=== PATIENT | female | born 1965 | race Native Hawaiian/Other Pacific Islander ===

== ENCOUNTER 2017-12-23 10:38 | Inpatient (IN) | payer OTHER ==
[2017-12-23 10:39] VITALS: BMI 22.8
--- NOTE | 2017-12-23 11:03 | C.PDOC ---
History Of Present Illness 52 y/o female s/p colonoscopy this morning sent by DR. Garza for admission. Patient complains of persistent GI bleed since 07/2017 bright red blood associated with weight loss and occasional lightheadedness. Patient admits to decreased appetite and denies pain, nausea, vomiting or back pain. Time Seen by Provider: 12/23/17 10:59 Chief Complaint (Nursing): GI Problem History Per: Patient History/Exam Limitations: no limitations Onset/Duration Of Symptoms: Days Current Symptoms Are (Timing): Still Present Past Medical History Reviewed: Historical Data, Nursing Documentation, Vital Signs Vital Signs: Last Vital Signs Temp 98.4 F 12/23/17 11:46 Pulse 86 12/23/17 11:46 Resp 20 12/23/17 11:46 BP 135/71 12/23/17 11:46 Pulse Ox 99 12/23/17 11:46 - Medical History PMH: Depression (NO MEDICATIONS), Migraine Surgical History: No Surg Hx Family History: States: No Known Family Hx Review Of Systems Constitutional: Negative for: Fever, Chills Gastrointestinal: Positive for: Hematochezia. Negative for: Nausea, Vomiting, Abdominal Pain Musculoskeletal: Negative for: Back Pain Skin: Negative for: Rash Physical Exam - Physical Exam Appears: Non-toxic, No Acute Distress Skin: Warm, Dry, No Pale, No Rash Head: Atraumatic, Normacephalic Eye(s): bilateral: PERRL, EOMI Oral Mucosa: Moist Neck: Normal ROM, Supple Cardiovascular: Rhythm Regular Respiratory: Normal Breath Sounds, No Rales, No Rhonchi, No Wheezing Gastrointestinal/Abdominal: Soft, No Tenderness, No Guarding, No Rebound Rectal: Deferred Back: No CVA Tenderness Extremity: Normal ROM, Capillary Refill (<2 seconds) Neurological/Psych: Oriented x3, Normal Speech, Normal Cognition ED Course And Treatment - Laboratory Results Result Diagrams: 12/23/17 11:41 12/23/17 11:41 ECG: Interpreted By Me, Viewed By Me ECG Rhythm: Sinus Rhythm Rate From EC (BPM) O2 Sat by Pulse Oximetry: 100 (RA) Pulse Ox Interpretation: Normal Progress - Re-Evaluation Re-evaluation Note: 12/23/17 11:00 D/W DR GARZA: STATES D/W DR JONES PRIOR TO ER REFERRAL, PT REQUIRES ADMISSION FOR RECTAL BLEEDING AND MASS. - Data Reviewed Data Reviewed: Lab, Diagnostic imaging, EKG, Old records - Critical Care Citical Care: Excluding Proc Time Critical Care Time: 90 minutes - Continuity of Care Discussed patient case with:: Patient Discussed pt. case with toy consultant/specialty: Gastroenterology Disposition Counseled Patient/Family Regarding: Studies Performed, Diagnosis - Disposition Disposition: HOSPITALIZED Disposition Time: 11:02 Condition: STABLE - POA Present On Arrival: None - Clinical Impression Clinical Impression: GI bleed, Rectal mass - Scribe Statement The provider has reviewed the documentation as recorded by the Merrickibadriel Wagner All medical record entries made by the Merrickibadriel were at my direction and personally dictated by me. I have reviewed the chart and agree that the record accurately reflects my personal performance of the history, physical exam, medical decision making, and the department course for this patient. I have also personally directed, reviewed, and agree with the discharge instructions and disposition. Decision To Admit - Pt Status Changed To: Hospital Disposition Of: Inpatient - Admit Certification Admit to Inpatient:: After my assessment, the patient will require hospitalization for at least two midnights. This is because of the severity of symptoms shown, intensity of services needed, and/or the medical risk in this patient being treated as an outpatient. - InPatient: Physician Admission Certification: I certify that this patient requires 2 or more midnights of care for the following reason:: SEE NOTE - . Bed Request Type: Telemetry Admitting Physician: Werner Jones Patient Diagnosis: GI bleed, Rectal mass
[2017-12-23 11:46] LABS: BASO # 0.1 K/uL (0.0-0.2); BASO % 0.9 % (0.0-2.0); EOS # 0.1 K/uL (0.0-0.7); HEMOGLOBIN 12.5 g/dL (11.0-16.0); LYMPH # 1.7 K/uL (1.0-4.3); LYMPH % 18.7 % (20.0-40.0); MEAN CORPUSCULAR HGB CONC 33.3 g/dL (33.0-37.0); MEAN PLATELET VOLUME 8.1 fL (7.2-11.7); MONO # 0.8 K/uL (0.0-0.8); MONO % 8.9 % (0.0-10.0); NEUT # 6.4 K/uL (1.8-7.0); NEUT % 70.5 % (50.0-75.0); RBC 4.16 Mil/uL (3.80-5.20)
--- NOTE | 2017-12-23 11:52 | RAD ---
Chest x-ray single frontal view History: GI bleeding. Comparison: None available. Findings: Bibasilar breast and nipple shadows. Mild venous congestion. Tortuous aorta. Degenerative changes in the spine. Impression: Bibasilar breast and nipple shadows. Mild venous congestion. Tortuous aorta.
[2017-12-23 11:54] LABS: PROTHROMBIN TIME 11.2 SECONDS (9.7-12.2)
[2017-12-23 12:00] LABS: ALB/GLOB RATIO 1.1 (1.0-2.1); ALBUMIN 3.9 g/dL (3.5-5.0); ALT/SGPT 100 U/L (9-52); AST/SGOT 146 U/L (14-36); BLOOD UREA NITROGEN 7 mg/dL (7-17); CALCIUM 8.5 mg/dl (8.6-10.4); GFR AFRICAN-AMERICAN > 60; GFR NON-AFRICAN AMERICAN > 60
--- NOTE | 2017-12-23 13:26 | CP.PCM.CON ---
History of Present Illness - History of Present Illness History of Present Illness: 52 year old female with a history of hemorrhoids, admitted with hematochezia, found to have a rectal mass concerning for malignancy. The patient notes to bleeding with bowel movements for 4-5 months. She notes to a few drops of blood in the toilet bowl or blood streaked toilet paper. She notes to progressive fatigue and 5-10 pound weightloss. She is s/p colonoscopy which revealed a rectal mass s/p biopsy. Past medical history: Hemorrhoids Past surgical history: Denies Family history: Sister had colon cancer at age 52 Social history: Denies tobacco, alcohol, and illicit drug use. Allergies: NKA Review of systems: All remaining review of systems including HEENT, cardiovascular, respiratory, gastrointestinal, genitourinary, musculoskeletal, dermatologic, neurologic, and psychiatric are negative unless mentioned in the HPI. Past Patient History - Past Medical History & Family History Past Medical History?: Yes - Past Social History Smoking Status: Never Smoked - CARDIAC Hx Cardiac Disorders: No - PULMONARY Hx Respiratory Disorders: No - NEUROLOGICAL Hx Migraine: Yes - HEENT Hx HEENT Problems: No Other/Comment: LASIC SURGERY BOTH EYES - RENAL Hx Chronic Kidney Disease: No - ENDOCRINE/METABOLIC Hx Endocrine Disorders: No - HEMATOLOGICAL/ONCOLOGICAL Hx Blood Disorders: No Hx Blood Transfusions: No - INTEGUMENTARY Hx Dermatological Problems: No - MUSCULOSKELETAL/RHEUMATOLOGICAL Hx Fractures: No - GASTROINTESTINAL Hx Gastrointestinal Disorders: Yes Hx Hemorrhoids: Yes - GENITOURINARY/GYNECOLOGICAL Hx Genitourinary Disorders: No - PSYCHIATRIC Hx Depression: Yes (NO MEDICATIONS) - SURGICAL HISTORY Hx Surgeries: Yes Hx Tubal Ligation: Yes Other/Comment: LASIK EYE, BILATERAL BREAST IMPLANTS - ANESTHESIA Hx Anesthesia: Yes Hx Anesthesia Reactions: No Hx Malignant Hyperthermia: No Meds Allergies/Adverse Reactions: Allergies Allergy/AdvReac Type Severity Reaction Status Date / Time No Known Allergies Allergy Verified 12/23/17 10:45 - Medications Medications: Current Medications Pantoprazole Sodium (Protonix Inj) 40 mg IVP DAILY [facility] Physical Exam - Head Exam Head Exam: ATRAUMATIC - Eye Exam Eye Exam: Normal appearance - ENT Exam ENT Exam: Mucous Membranes Dry - Respiratory Exam Respiratory Exam: NORMAL BREATHING PATTERN - Cardiovascular Exam Cardiovascular Exam: +S1, +S2 - GI/Abdominal Exam GI & Abdominal Exam: Normal Bowel Sounds - Extremities Exam Extremities exam: Positive for: normal inspection - Neurological Exam Neurological exam: Oriented x3 - Psychiatric Exam Psychiatric exam: Normal Affect, Normal Mood - Skin Skin Exam: Warm Results - Vital Signs Recent Vital Signs: Last Vital Signs Temp 97.1 F L 12/23/17 12:56 Pulse 77 12/23/17 13:02 Resp 20 12/23/17 12:56 BP 114/71 12/23/17 12:56 Pulse Ox 99 12/23/17 12:56 - Labs Result Diagrams: 12/24/17 07:03 12/24/17 07:03 Labs: Laboratory Results - last 24 hr 12/23/17 12/23/17 12/23/17 11:41 11:41 11:41 WBC 9.0 RBC 4.16 Hgb 12.5 Hct 37.5 MCV 90.0 MCH 30.0 MCHC 33.3 RDW 15.0 H Plt Count 350 MPV 8.1 Neut % (Auto) 70.5 Lymph % (Auto) 18.7 L [place] % (Auto) 8.9 Eos % (Auto) 1.0 Baso % (Auto) 0.9 Neut # (Auto) 6.4 Lymph # (Auto) 1.7 [place] # (Auto) 0.8 Eos # (Auto) 0.1 Baso # (Auto) 0.1 PT 11.2 INR 1.0 APTT 37 H Sodium 141 Potassium 4.5 Chloride 104 Carbon Dioxide 27 Anion Gap 14 BUN 7 Creatinine 0.6 L Est GFR ( Amer) > 60 Est GFR (Non-Af Amer) > 60 Random Glucose 87 Calcium 8.5 L Total Bilirubin 0.4 AST 146 H ALT 100 H Alkaline Phosphatase 131 H Total Protein 7.4 Albumin 3.9 Globulin 3.5 Albumin/Globulin Ratio 1.1 Blood Type Antibody Screen 12/23/17 11:41 WBC RBC Hgb Hct MCV MCH MCHC RDW Plt Count MPV Neut % (Auto) Lymph % (Auto) [place] % (Auto) Eos % (Auto) Baso % (Auto) Neut # (Auto) Lymph # (Auto) [place] # (Auto) Eos # (Auto) Baso # (Auto) PT INR APTT Sodium Potassium Chloride Carbon Dioxide Anion Gap BUN Creatinine Est GFR ( Amer) Est GFR (Non-Af Amer) Random Glucose Calcium Total Bilirubin AST ALT Alkaline Phosphatase Total Protein Albumin Globulin Albumin/Globulin Ratio Blood Type AB POSITIVE Antibody Screen Negative Assessment & Plan (1) Rectal mass Assessment and Plan: concerning for malignancy f/u biopsy check CT C/A/P and CEA further treatment recs based on path and staging Thank you for this interesting consult. Status: Acute
--- NOTE | 2017-12-23 14:58 | CP.PCM.CON ---
History of Present Illness - History of Present Illness History of Present Illness: Surgery- Dr. Sung Reason for consult: Rectal mass 52F presents w/ rectal bleeding since July with bright red blood on the toilet paper and blood in stool stating not more than a few drops of blood. Patient has been complaining of associated dizziness and lightheadedness. Patient states 8lb weight loss over the last 6 months. 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 Colonoscopy was performed today and a fungating mass was found at the rectosigmoid junction that was actively oozing Denies associated fevers, chills, chest pain, nausea, vomiting, changes in vision, loss of consciousness PMH: External & internal Hemorrhoids, , migraines PSH: C-Scope (07/2016 & 12/2017), Laparoscopic Tubal ligation ALL: NKDA SocialHx: occasional ETOH use, Denies tobacco, recreational drug use FamilyHx: Sister colon CA at age 52 Review of Systems - Review of Systems All systems: reviewed and no additional remarkable complaints except - Constitutional Constitutional: As Per HPI Past Patient History - Past Medical History & Family History Past Medical History?: Yes - Past Social History Smoking Status: Never Smoked - CARDIAC Hx Cardiac Disorders: No - PULMONARY Hx Respiratory Disorders: No - NEUROLOGICAL Hx Migraine: Yes - HEENT Hx HEENT Problems: No Other/Comment: LASIC SURGERY BOTH EYES - RENAL Hx Chronic Kidney Disease: No - ENDOCRINE/METABOLIC Hx Endocrine Disorders: No - HEMATOLOGICAL/ONCOLOGICAL Hx Blood Disorders: No Hx Blood Transfusions: No - INTEGUMENTARY Hx Dermatological Problems: No - MUSCULOSKELETAL/RHEUMATOLOGICAL Hx Fractures: No - GASTROINTESTINAL Hx Gastrointestinal Disorders: Yes Hx Hemorrhoids: Yes - GENITOURINARY/GYNECOLOGICAL Hx Genitourinary Disorders: No - PSYCHIATRIC Hx Depression: Yes (NO MEDICATIONS) - SURGICAL HISTORY Hx Surgeries: Yes Hx Tubal Ligation: Yes Other/Comment: LASIK EYE, BILATERAL BREAST IMPLANTS - ANESTHESIA Hx Anesthesia: Yes Hx Anesthesia Reactions: No Hx Malignant Hyperthermia: No Meds Allergies/Adverse Reactions: Allergies Allergy/AdvReac Type Severity Reaction Status Date / Time No Known Allergies Allergy Verified 12/23/17 10:45 - Medications Medications: Current Medications Pantoprazole Sodium (Protonix Inj) 40 mg IVP DAILY [facility] Physical Exam - Constitutional Appears: Non-toxic, No Acute Distress - Head Exam Head Exam: ATRAUMATIC - Eye Exam Eye Exam: EOMI. absent: Scleral icterus - ENT Exam ENT Exam: Mucous Membranes Moist - Respiratory Exam Respiratory Exam: NORMAL BREATHING PATTERN. absent: Accessory Muscle Use, Respiratory Distress - Cardiovascular Exam Cardiovascular Exam: +S1, +S2. absent: Bradycardia, Tachycardia - GI/Abdominal Exam GI & Abdominal Exam: Soft. absent: Distended, Firm, Guarding, Rigid, Tenderness - Rectal Exam Rectal Exam: Hemorrhoids. absent: Fecal Impaction Additional comments: Skin tags at the 12 and 9 o'clock position no bright red blood noted on exam - Extremities Exam Extremities exam: Negative for: calf tenderness, pedal edema - Neurological Exam Neurological exam: Alert, Oriented x3 - Psychiatric Exam Psychiatric exam: Normal Affect - Skin Skin Exam: Normal Color Results - Vital Signs Recent Vital Signs: Last Vital Signs Temp 97.1 F L 12/23/17 12:56 Pulse 77 12/23/17 13:02 Resp 20 12/23/17 12:56 BP 114/71 12/23/17 12:56 Pulse Ox 99 12/23/17 12:56 - Labs Result Diagrams: 12/23/17 11:41 12/23/17 11:41 Labs: Laboratory Results - last 24 hr 12/23/17 12/23/17 12/23/17 11:41 11:41 11:41 WBC 9.0 RBC 4.16 Hgb 12.5 Hct 37.5 MCV 90.0 MCH 30.0 MCHC 33.3 RDW 15.0 H Plt Count 350 MPV 8.1 Neut % (Auto) 70.5 Lymph % (Auto) 18.7 L [place] % (Auto) 8.9 Eos % (Auto) 1.0 Baso % (Auto) 0.9 Neut # (Auto) 6.4 Lymph # (Auto) 1.7 [place] # (Auto) 0.8 Eos # (Auto) 0.1 Baso # (Auto) 0.1 PT 11.2 INR 1.0 APTT 37 H Sodium 141 Potassium 4.5 Chloride 104 Carbon Dioxide 27 Anion Gap 14 BUN 7 Creatinine 0.6 L Est GFR ( Amer) > 60 Est GFR (Non-Af Amer) > 60 Random Glucose 87 Calcium 8.5 L Total Bilirubin 0.4 AST 146 H ALT 100 H Alkaline Phosphatase 131 H Total Protein 7.4 Albumin 3.9 Globulin 3.5 Albumin/Globulin Ratio 1.1 Blood Type Antibody Screen 12/23/17 11:41 WBC RBC Hgb Hct MCV MCH MCHC RDW Plt Count MPV Neut % (Auto) Lymph % (Auto) [place] % (Auto) Eos % (Auto) Baso % (Auto) Neut # (Auto) Lymph # (Auto) [place] # (Auto) Eos # (Auto) Baso # (Auto) PT INR APTT Sodium Potassium Chloride Carbon Dioxide Anion Gap BUN Creatinine Est GFR ( Amer) Est GFR (Non-Af Amer) Random Glucose Calcium Total Bilirubin AST ALT Alkaline Phosphatase Total Protein Albumin Globulin Albumin/Globulin Ratio Blood Type AB POSITIVE Antibody Screen Negative Assessment & Plan - Assessment and Plan (Free Text) Assessment: 52F w/ rectal bleeding & rectosigmoid mass Plan: - Pre-operative CEA - Chest and Abdomen CT to r/o Mets - CLD - tentatively plan for OR on - f/u biopsy results - daily labs - further recs per Dr. Sung surgical attending PGY1
[2017-12-23] MEDS ORDERED: Iodixanol 320 MG/ML 100 ML BOTTLE IV ONE (16:46)
--- NOTE | 2017-12-23 17:48 | CT ---
PROCEDURE: CT Chest, Abdomen and Pelvis with intravenous contrast HISTORY: rectal mass, r/o mets COMPARISON: None. TECHNIQUE: IV dose administered: 100 mL Visipaque 320 Radiation dose: Total exam DLP = 544.67 mGy-cm. This CT exam was performed using one or more of the following dose reduction techniques: Automated exposure control, adjustment of the mA and/or kV according to patient size, and/or use of iterative reconstruction technique. FINDINGS: CT CHEST WITH CONTRAST: LUNGS: Clear. No nodule, mass or consolidation. MEDIASTINUM: Unremarkable. Normal caliber aorta and pulmonary arterial trunk. No aortic dissection. Normal size heart. Bilateral breast augmentation prostheses noted. LYMPH NODES: No mediastinal or hilar lymphadenopathy.Incidental subcentimeter right epicardial lymph node common nonspecific. PLEURA: Unremarkable. No pneumothorax. No pleural fluid. BONES: Unremarkable. OTHER FINDINGS: None. CT ABDOMEN AND PELVIS: LIVER: Innumerable metastases throughout both lobes of the liver. The very markedly in size. No biliary dilatation. Normal hepatic size and contour. GALLBLADDER AND BILE DUCTS: Unremarkable. PANCREAS: Unremarkable. No gross lesion or ductal dilatation. SPLEEN: Unremarkable. ADRENALS: Unremarkable. No mass. KIDNEYS AND URETERS: Unremarkable. No hydronephrosis. No solid mass. VASCULATURE: Unremarkable. No aortic aneurysm. BOWEL: Mural thickening of the rectum, long segment. There is also a left pararectal soft tissue mass with only narrow point of connection to the rectum. This may represent lymphadenopathy. There are multiple small perirectal nodes elsewhere. There are no other abnormal bowel loops. There is no bowel obstruction. APPENDIX: Normal appendix. PERITONEUM: Unremarkable. No free fluid. No free air. LYMPH NODES: No retroperitoneal or pelvic lymphadenopathy. BLADDER: Poorly distended. Grossly normal. REPRODUCTIVE: Normal uterus. BONES: No acute fracture. OTHER FINDINGS: None. IMPRESSION: Long segment rectal thickening consistent with stated diagnosis of rectal neoplasm. Left pararectal mass, possibly lymphadenopathy, with narrow point of connection to the rectum. Small perirectal nodes. Extensive hepatic metastasis. No evidence of thoracic metastasis.
[2017-12-23 22:56] LABS: BASO # 0.1 K/uL (0.0-0.2); BASO % 0.6 % (0.0-2.0); EOS # 0.3 K/uL (0.0-0.7); EOS % 2.2 % (0.0-4.0); HEMOGLOBIN 12.5 g/dL (11.0-16.0); LYMPH # 2.9 K/uL (1.0-4.3); LYMPH % 23.9 % (20.0-40.0); MEAN CELL VOLUME 89.6 fL (81.0-99.0); MEAN CORPUSCULAR HEMOGLOBIN 29.3 pg (27.0-31.0); MEAN CORPUSCULAR HGB CONC 32.7 g/dL (33.0-37.0); MEAN PLATELET VOLUME 8.3 fL (7.2-11.7); MONO # 1.1 K/uL (0.0-0.8); MONO % 8.6 % (0.0-10.0); NEUT % 64.7 % (50.0-75.0); RBC 4.27 Mil/uL (3.80-5.20); RED CELL DISTRIBUTION WIDTH 15.1 % (11.5-14.5); WHITE BLOOD COUNT 12.3 K/uL (4.8-10.8)
[2017-12-24 07:17] LABS: BASO # 0.1 K/uL (0.0-0.2); BASO % 0.8 % (0.0-2.0); EOS # 0.2 K/uL (0.0-0.7); EOS % 2.5 % (0.0-4.0); LYMPH # 1.7 K/uL (1.0-4.3); LYMPH % 18.9 % (20.0-40.0); MEAN CELL VOLUME 89.5 fL (81.0-99.0); MEAN CORPUSCULAR HGB CONC 33.5 g/dL (33.0-37.0); MEAN PLATELET VOLUME 8.3 fL (7.2-11.7); MONO # 0.9 K/uL (0.0-0.8); MONO % 9.9 % (0.0-10.0); NEUT # 5.9 K/uL (1.8-7.0); NEUT % 67.9 % (50.0-75.0); NRBC % 0.1 % (0.0-2.0); RBC 4.02 Mil/uL (3.80-5.20); RED CELL DISTRIBUTION WIDTH 14.9 % (11.5-14.5); WHITE BLOOD COUNT 8.7 K/uL (4.8-10.8)
[2017-12-24 07:52] LABS: ALB/GLOB RATIO 1.1 (1.0-2.1); ALBUMIN 3.6 g/dL (3.5-5.0); ALT/SGPT 78 U/L (9-52); AST/SGOT 140 U/L (14-36); BLOOD UREA NITROGEN 4 mg/dL (7-17); CALCIUM 8.5 mg/dl (8.6-10.4); GFR AFRICAN-AMERICAN > 60; GFR NON-AFRICAN AMERICAN > 60
[2017-12-24] MEDS ORDERED: Dextrose 5%/0.45% NS 1,000 ML IV SCH (10:30)
--- NOTE | 2017-12-24 10:37 | CP.PCM.PN ---
Subjective - Date & Time of Evaluation Date of Evaluation: 12/24/17 Time of Evaluation: 10:35 - Subjective Subjective: Surgery: Dr. Cronin Patient reports some fullness and pressure in the rectum. She reports diarrhea. She denies bleeding at this time. She denies f/c/n/v. Objective - Vital Signs/Intake and Output Vital Signs (last 24 hours): Temp Pulse Resp BP Pulse Ox 98.0 F 59 L 20 99/71 L 98 12/24/17 08:46 12/24/17 08:46 12/24/17 08:46 12/24/17 08:46 12/24/17 08:46 Intake and Output: 12/24/17 12/24/17 06:59 18:59 Intake Total 1999 Balance 1999 - Medications Medications: Current Medications Lactated Ringer's (Lactated Ringer's) 1,000 mls @ 100 mls/hr IV .Q10H [facility] Dextrose/Sodium Chloride (Dextrose 5%/0.45% Ns 1000 Ml) 1,000 mls @ 60 mls/hr IV .[id number] [facility] Stop: 12/24/17 23:55 Last Admin: 12/24/17 10:27 Dose: 60 mls/hr Pantoprazole Sodium (Protonix Inj) 40 mg IVP DAILY [facility] Last Admin: 12/24/17 10:09 Dose: 40 mg - Labs Labs: 12/24/17 07:03 12/24/17 07:03 PT 11.2 SECONDS (9.7-12.2) 12/23/17 11:41 INR 1.0 12/23/17 11:41 APTT 37 SECONDS (21-34) H 12/23/17 11:41 - Constitutional Appears: Non-toxic, No Acute Distress - Head Exam Head Exam: ATRAUMATIC, NORMOCEPHALIC - Eye Exam Eye Exam: EOMI, Normal appearance - ENT Exam ENT Exam: Mucous Membranes Moist - Respiratory Exam Respiratory Exam: NORMAL BREATHING PATTERN. absent: Respiratory Distress - Cardiovascular Exam Cardiovascular Exam: REGULAR RHYTHM. absent: Tachycardia - GI/Abdominal Exam GI & Abdominal Exam: Soft. absent: Distended, Guarding, Rigid, Tenderness, Rebound - Neurological Exam Neurological Exam: Alert, Awake, Oriented x3 - Psychiatric Exam Psychiatric exam: Normal Affect, Normal Mood - Skin Skin Exam: Dry, Normal Color, Warm Assessment and Plan - Assessment and Plan (Free Text) Assessment: 52 y/o female w/ rectal mass Plan: -f/u final pathology results -CT scan shows evidence of mets to the liver as well as evidence of jaden-rectal aixa enlargement -f/u Heme/Onc recs -will place portacath tomorrow and defer resection until after Heme/onc treatment pending pathology -D/W Dr. Pineda Gaming PGY3
--- NOTE | 2017-12-24 13:00 | CARD ---
APPROVED REPORT EKG Measurement Heart [id number] <Conclusion> Sinus rhythm with short LA Otherwise normal ECG
[2017-12-24 14:37] LABS: HEPATITIS B SURFACE AG Negative (NEGATIVE)
[2017-12-24 14:43] LABS: HEPATITIS A IGM NEGATIVE (NEGATIVE); HEPATITIS B CORE AB NEGATIVE (NEGATIVE)
[2017-12-24 14:55] LABS: HEPATITIS C ANTIBODY NEGATIVE (NEGATIVE)
--- NOTE | 2017-12-24 22:36 | CP.PCM.PN ---
Subjective - Date & Time of Evaluation Date of Evaluation: 12/24/17 Time of Evaluation: 12:05 - Subjective Subjective: No complaints. Objective - Vital Signs/Intake and Output Vital Signs (last 24 hours): Temp Pulse Resp BP Pulse Ox 97.8 F 79 18 100/66 98 12/24/17 15:37 12/24/17 15:37 12/24/17 15:37 12/24/17 15:37 12/24/17 15:37 Intake and Output: 12/24/17 12/25/17 18:59 06:59 Intake Total 600 Balance 600 - Medications Medications: Current Medications Lactated Ringer's (Lactated Ringer's) 1,000 mls @ 100 mls/hr IV .Q10H [facility] Dextrose/Sodium Chloride (Dextrose 5%/0.45% Ns 1000 Ml) 1,000 mls @ 60 mls/hr IV .[id number] [facility] Stop: 12/24/17 23:55 Last Admin: 12/24/17 10:27 Dose: 60 mls/hr Pantoprazole Sodium (Protonix Inj) 40 mg IVP DAILY [facility] Last Admin: 12/24/17 10:09 Dose: 40 mg - Labs Labs: 12/24/17 07:03 12/24/17 07:03 PT 11.2 SECONDS (9.7-12.2) 12/23/17 11:41 INR 1.0 12/23/17 11:41 APTT 37 SECONDS (21-34) H 12/23/17 11:41 - Head Exam Head Exam: ATRAUMATIC - Eye Exam Eye Exam: Normal appearance - ENT Exam ENT Exam: Mucous Membranes Dry - Respiratory Exam Respiratory Exam: NORMAL BREATHING PATTERN - Cardiovascular Exam Cardiovascular Exam: +S1, +S2 - GI/Abdominal Exam GI & Abdominal Exam: Normal Bowel Sounds - Extremities Exam Extremities Exam: Normal Inspection Assessment and Plan (1) Rectal mass Assessment & Plan: prelim path shows adenocarcinoma elevated CEA imaging suggestive of metastatic disease with large tumor burden in the liver recommend portacath placement for chemotherapy Status: Acute
[2017-12-25] MEDS: Lactated Ringer's 1,000 ML IV SCH ×2 (00:23→10:41)
--- NOTE | 2017-12-25 07:16 | HP ---
HISTORY OF PRESENT ILLNESS: A 52-year-old female admitted to the hospital with chief complaint of rectal bleeding, rectal mass. The patient was complaining of rectal bleeding and also is very weak. The patient seen ____ colon mass, rectal bleeding and advised admission. The patient does not smoke or drink. PAST MEDICAL HISTORY: Unremarkable. Had a colonoscopy 2 years ago that was normal. PHYSICAL EXAMINATION: GENERAL: The patient is awake, alert, and oriented. VITAL SIGNS: Temperature 98, pulse 90. HEENT: Normal limits. NECK: Supple. CHEST: Symmetrical. HEART: Regular. ABDOMEN: Soft. EXTREMITIES: No edema. IMPRESSION AND PLAN: The patient suffers from colon mass. At this point in time, the patient consultation, CAT scan. Werner Jones MD
[2017-12-25 07:31] LABS: HEMOGLOBIN 11.6 g/dL (11.0-16.0); MEAN CELL VOLUME 88.9 fL (81.0-99.0); MEAN CORPUSCULAR HEMOGLOBIN 30.1 pg (27.0-31.0); MEAN CORPUSCULAR HGB CONC 33.9 g/dL (33.0-37.0); MEAN PLATELET VOLUME 8.4 fL (7.2-11.7); RBC 3.87 Mil/uL (3.80-5.20); RED CELL DISTRIBUTION WIDTH 14.9 % (11.5-14.5); WHITE BLOOD COUNT 8.4 K/uL (4.8-10.8)
[2017-12-25 08:06] LABS: BLOOD UREA NITROGEN 2 mg/dL (7-17); CALCIUM 8.3 mg/dl (8.6-10.4); GFR AFRICAN-AMERICAN > 60; GFR NON-AFRICAN AMERICAN > 60
[2017-12-25] MEDS ORDERED: HEPARIN-NS 5,000 UNITS/500 ML 5,000 UNIT/500 ML BAG IV ONE (10:11)
[2017-12-25] MEDS ORDERED: Lidocaine 2% MPF (5 ml) Inj ONE (10:12)
[2017-12-25] MEDS ORDERED: ceFAZolin 1 gm in NS 1 GM/100 ML BAG IVPB ONE (10:12)
[2017-12-25] MEDS ORDERED: Lactated Ringer's 1,000 ML IV ONE (10:35)
[2017-12-25] MEDS ORDERED: Midazolam 2 MG/2 ML VIAL ONE (10:40)
[2017-12-25] MEDS ORDERED: Propofol 10 mg/ml Inj (20 ML) ONE ×2 (10:40→10:58)
--- NOTE | 2017-12-25 11:40 | CP.PCM.PN ---
Subjective - Date & Time of Evaluation Date of Evaluation: 12/25/17 Time of Evaluation: 08:00 - Subjective Subjective: PGY 2 medicine progress note for Dr. Jones: Patient was seen and examined at bedside this morning. She was sitting up comfortable in bed. She is due to OR today for port placement with Dr. Sung. Patient seemed to be in good spirits this am but said it has been tough coping with her diagnosis over the last few days. Luckily she is happy that she has 8 siblings who are very supportive of her and helping her cope. She has no complaints at this time. Tolerating PO intake. Objective - Vital Signs/Intake and Output Vital Signs (last 24 hours): Temp Pulse Resp BP Pulse Ox 98.1 F 89 20 113/75 99 12/25/17 08:44 12/25/17 08:44 12/25/17 08:44 12/25/17 08:44 12/25/17 08:44 Intake and Output: 12/25/17 12/25/17 06:59 18:59 Intake Total 800 Balance 800 - Medications Medications: Current Medications Lactated Ringer's (Lactated Ringer's) 1,000 mls @ 100 mls/hr IV .Q10H [facility] Last Admin: 12/25/17 10:41 Dose: Not Given Pantoprazole Sodium (Protonix Inj) 40 mg IVP DAILY [facility] Last Admin: 12/25/17 09:12 Dose: 40 mg - Labs Labs: 12/25/17 07:11 12/25/17 07:11 PT 11.2 SECONDS (9.7-12.2) 12/23/17 11:41 INR 1.0 12/23/17 11:41 APTT 37 SECONDS (21-34) H 12/23/17 11:41 - Constitutional Appears: Non-toxic, No Acute Distress - Head Exam Head Exam: ATRAUMATIC, NORMAL INSPECTION - Eye Exam Eye Exam: EOMI Pupil Exam: NORMAL ACCOMODATION - ENT Exam ENT Exam: Mucous Membranes Moist - Respiratory Exam Respiratory Exam: Clear to Ausculation Bilateral, NORMAL BREATHING PATTERN. absent: Respiratory Distress - Cardiovascular Exam Cardiovascular Exam: REGULAR RHYTHM, +S1, +S2 - GI/Abdominal Exam GI & Abdominal Exam: Soft, Normal Bowel Sounds. absent: Distended, Firm, Guarding, Tenderness - Extremities Exam Extremities Exam: Normal Inspection - Back Exam Back Exam: NORMAL INSPECTION - Neurological Exam Neurological Exam: Alert, Awake, CN II-XII Intact, Normal Gait, Oriented x3 - Psychiatric Exam Psychiatric exam: Normal Affect, Normal Mood Assessment and Plan - Assessment and Plan (Free Text) Assessment: Rectal adenocarcinoma Assessment & Plan: prelim path shows adenocarcinoma elevated CEA CT scan shows evidence of mets to the liver as well as evidence of jaden-rectal aixa enlargement Hepatitis negative Dr. Loza consulted, help appreciated Dr. Sung consulted, help appreciated - for port placement today and will defer resection until after Heme/onc treatment pending pathology Dr. Garza consulted, help appreciated Status: Acute Prophylactic Measures Assessment & Plan: Protonix 40mg IVP daily No chemical anticoagulation- patient was bleeding from the rectum and was going to OR SCDS NPO for OR but can resume regular diet after the port placement Status: Acute All management per Dr. Jones.
--- NOTE | 2017-12-25 11:49 | PCM.SURG1 ---
Surgeon's Initial Post Op Note - Surgeon's Notes Surgeon: Dr. Sung [employer]oradio Operator: PGY1 Type of Anesthesia: IV Sedation Pre-Operative Diagnosis: Central venous access Operative Findings: See op note Post-Operative Diagnosis: as above Operation Performed: Right IJ portacath placement w/ fluoroscopy Specimen/Specimens Removed: none Estimated Blood Loss: EBL {In ML}: 15 Post-Op Condition: Good Date of Surgery/Procedure: 12/25/17 Time of Surgery/Procedure: 11:49
--- NOTE | 2017-12-25 13:14 | RAD ---
HISTORY: s/p Central access placement COMPARISON: 12/23/2017. FINDINGS: The right-sided MediPort terminates in the SVC. LUNGS: The lungs are well inflated and clear. PLEURA: No significant pleural effusion identified, no pneumothorax apparent. CARDIOVASCULAR: Normal. OSSEOUS STRUCTURES: No significant abnormalities. VISUALIZED UPPER ABDOMEN: Normal. OTHER FINDINGS: None. IMPRESSION: Right-sided MediPort terminates in the SVC. No pneumothorax. No acute findings.
--- NOTE | 2017-12-25 14:16 | CP.PCM.PN ---
Subjective - Date & Time of Evaluation Date of Evaluation: 12/25/17 Time of Evaluation: 13:30 - Subjective Subjective: No complaints. Objective - Vital Signs/Intake and Output Vital Signs (last 24 hours): Temp Pulse Resp BP Pulse Ox 98.5 F 85 18 138/68 98 12/25/17 13:35 12/25/17 13:35 12/25/17 13:35 12/25/17 13:35 12/25/17 13:35 Intake and Output: 12/25/17 12/25/17 06:59 18:59 Intake Total 800 450 Balance 800 450 - Medications Medications: Current Medications Pantoprazole Sodium (Protonix Inj) 40 mg IVP DAILY MARGARITA Last Admin: 12/25/17 09:12 Dose: 40 mg - Labs Labs: 12/25/17 07:11 12/25/17 07:11 PT 11.2 SECONDS (9.7-12.2) 12/23/17 11:41 INR 1.0 12/23/17 11:41 APTT 37 SECONDS (21-34) H 12/23/17 11:41 - Head Exam Head Exam: ATRAUMATIC - Eye Exam Eye Exam: Normal appearance - ENT Exam ENT Exam: Mucous Membranes Dry - Respiratory Exam Respiratory Exam: NORMAL BREATHING PATTERN - Cardiovascular Exam Cardiovascular Exam: +S1, +S2 - GI/Abdominal Exam GI & Abdominal Exam: Normal Bowel Sounds Assessment and Plan (1) Rectal cancer Assessment & Plan: with lymph node and liver metastasis for portacath placement outpatient chemotherapy and liver directed therapy Status: Acute
[2017-12-25 16:27] VITALS: RESP 20
--- NOTE | 2017-12-25 22:26 | OP ---
PROCEDURE DATE: 12/25/2017 PREOPERATIVE DIAGNOSIS: Metastatic colon cancer. POSTOPERATIVE DIAGNOSIS: Metastatic colon cancer. PROCEDURE CARRIED OUT: Placement of Port-A-Cath PowerPort type, right jugular vein with C-arm fluoroscopy, ultrasound-guided puncture and micropuncture technique. SURGEON: Kvng Sung Jr., MD PROCESS IMPROVEMENT ANALYST: Dr. Armstrong. ANESTHESIOLOGIST: Dr. Diallo. TYPE OF ANESTHESIA: Local with sedation. INDICATIONS: The patient is a 52-year-old woman recently diagnosed with advanced colon cancer with metastases to liver. OPERATIVE FINDINGS: A catheter was inserted uneventfully via the jugular vein. DESCRIPTION OF PROCEDURE: The patient was given local anesthesia. Using ultrasound guidance and micropuncture technique, the right jugular vein was cannulated. Under fluoroscopic control, the guidewire was advanced centrally. The tip of the wire was eventually positioned in the inferior vena cava. After this has been done, a pocket was created on the chest wall and the catheter was deployed. It originated on the right chest wall, went through the right jugular vein, and terminated at the superior vena cava. It was flushed with heparinized saline with good flow and return. Catheter site was closed with Monocryl sutures and Steri-Strips applied to the skin. Blood loss was 15 mL. Operation carried out is placement of Port-A-Cath PowerPort type, right jugular vein. Ultrasound imaging of the neck showed the vein was 14 mm in diameter with normal compressibility and no evidence of intraluminal thrombosis. Kvng Sung Jr., MD
[2017-12-26 07:22] LABS: BASO % 0.6 % (0.0-2.0); EOS # 0.1 K/uL (0.0-0.7); EOS % 1.5 % (0.0-4.0); HEMOGLOBIN 11.8 g/dL (11.0-16.0); LYMPH # 1.7 K/uL (1.0-4.3); LYMPH % 21.5 % (20.0-40.0); MEAN CELL VOLUME 88.9 fL (81.0-99.0); MEAN CORPUSCULAR HEMOGLOBIN 30.2 pg (27.0-31.0); MEAN CORPUSCULAR HGB CONC 33.9 g/dL (33.0-37.0); MEAN PLATELET VOLUME 8.4 fL (7.2-11.7); MONO # 0.9 K/uL (0.0-0.8); MONO % 11.2 % (0.0-10.0); NEUT # 5.1 K/uL (1.8-7.0); NEUT % 65.2 % (50.0-75.0); RBC 3.92 Mil/uL (3.80-5.20); WHITE BLOOD COUNT 7.8 K/uL (4.8-10.8)
[2017-12-26 07:37] LABS: BLOOD UREA NITROGEN 5 mg/dL (7-17); CALCIUM 8.2 mg/dl (8.6-10.4); GFR AFRICAN-AMERICAN > 60; GFR NON-AFRICAN AMERICAN > 60
[2017-12-26 08:00] VITALS: BP 116/76; TEMP 98.3; O2SAT 98
--- NOTE | 2017-12-26 08:12 | CON ---
DATE: 12/24/2017 That is from Paulino Rodriguez MD, to Werner Jones MD I was called for GI consultation by the admitting MD. The patient is seen and fully examined on 12/24/2017 as requested by the admitted medical staff. The entire chart is reviewed including but not limited to most recent lab and radiology study results, current and the previous medication list, current and the previous medical events, allergy to medication list as well as all the available current and the previous medical record. Case discussed with the staff at length on 12/24/2017. HISTORY OF PRESENT ILLNESS: This is a 52-year-old female who was admitted through the emergency room post colonoscopy with biopsy and rectal mass tattooing. She has recurrent episodes of rectal bleeding, severe lower abdominal pain, especially on defecation with change of bowel movement habit recently with the headache on and off and subsequently decrease of her appetite. No reported hematemesis, palpitation, chest pain, shortness of breath, chills, or fever. The day before the admission, the patient had colonoscopy with biopsy of the rectal mass. Pathology report is still pending and surgical consultation as well as oncology/hematology consultation was called. PAST MEDICAL HISTORY: Including, but not limited to, 1. Migraine headache. 2. Peptic ulcer disease. 3. Internal hemorrhoids. 4. Depression. FAMILY HISTORY: Noncontributory. SOCIAL HISTORY: No reported recent history of alcohol intake or cigarette smoking. ALLERGIES: ALLERGY TO MEDICATION, UNCLEAR. CURRENT MEDICATIONS: Medication list post admission was reviewed. LABORATORY DATA: After being admitted to the hospital, the patient was found to have initially normal CBC with normal SMA-7, but low hematocrit of . White blood cells of 3.6. calcium 3, total protein is normal. Blood glucose level 203 with low creatinine. It has to be mentioned that due to the patient's recurrent rectal bleeding, even post colonoscopy, and due to the findings of the colonoscopy, the patient was strongly advised to be admitted. PHYSICAL EXAMINATION: GENERAL: A 52-year-old female, awake, alert, and oriented. VITAL SIGNS: Afebrile, with pulse of 80, respiratory rate of 20 to 22, and blood pressure 130/74. HEENT: Showed dry oral mucoid membrane. Nonicteric sclerae. LYMPH NODES: No lymphadenitis or lymphadenopathy. LUNGS: Few scattered crepitation with breathing sounds present bilaterally. HEART: Positive S1 and S2. ABDOMEN: Soft with slight generalized tenderness. No mass or organomegaly. No rebound tenderness or guarding. EXTREMITIES: Without significant edema, clubbing, or cyanosis. RECTAL: . NEUROLOGIC: No reported new neurological significant, motor or sensory deficit. IMPRESSION: 1. Rectal bleeding, secondary to rectal mass lesion, most likely CA of the rectum. 2. Abnormal CAT scan of the abdomen, indicative of metastatic lesions to the liver, as per official CAT scan report. 3. Long history of migraine headache, deflation, and peptic ulcer disease. SUGGESTIONS: 1. Continue current management. 2. Case discussed at length with Dr. Sung. The patient is for potential surgery as the patient is still bleeding before and post admission. To be discussed with Dr. Loza, the financial analysis consultant on the case. Thank you for letting me participate in your patient's case management. We will follow up closely with you. Paulino Rodriguez MD
--- NOTE | 2017-12-26 08:19 | CP.PCM.PN ---
Subjective - Date & Time of Evaluation Date of Evaluation: 12/26/17 Time of Evaluation: 08:16 - Subjective Subjective: PGY-1 surgery progress note for Dr Sung. No acute events noted overnight. Patient stated she was feeling well. Complained of mild pain at the surgical site. Denied chest pain, shortness of breath, fever, chills. Objective - Vital Signs/Intake and Output Vital Signs (last 24 hours): Temp Pulse Resp BP Pulse Ox 98.3 F 98 H 20 116/76 98 12/26/17 07:15 12/26/17 07:58 12/26/17 07:15 12/26/17 07:15 12/26/17 07:15 - Medications Medications: Current Medications Pantoprazole Sodium (Protonix Inj) 40 mg IVP DAILY MARGARITA Last Admin: 12/25/17 09:12 Dose: 40 mg - Labs Labs: 12/26/17 07:04 12/26/17 07:04 PT 11.2 SECONDS (9.7-12.2) 12/23/17 11:41 INR 1.0 12/23/17 11:41 APTT 37 SECONDS (21-34) H 12/23/17 11:41 - Additional Findings Additional findings: - Constitutional Appears: Non-toxic, No Acute Distress - Head Exam Head Exam: ATRAUMATIC, NORMOCEPHALIC - Eye Exam Eye Exam: EOMI, Normal appearance - ENT Exam ENT Exam: Mucous Membranes Moist - Respiratory Exam Respiratory Exam: NORMAL BREATHING PATTERN. absent: Respiratory Distress - Cardiovascular Exam Cardiovascular Exam: REGULAR RHYTHM. absent: Tachycardia - GI/Abdominal Exam GI & Abdominal Exam: Soft. absent: Distended, Guarding, Rigid, Tenderness, Rebound - Neurological Exam Neurological Exam: Alert, Awake, Oriented x3 - Psychiatric Exam Psychiatric exam: Normal Affect, Normal Mood - Skin Skin Exam: Dry, Normal Color, Warm Portacath surgical site with dressing which was c/d/i Assessment and Plan - Assessment and Plan (Free Text) Assessment: 52 y/o female w/ rectal mass Plan: -s/p POD #1 Right IJ portacath placement w/ fluoroscopy -f/u final pathology results -CT scan shows evidence of mets to the liver as well as evidence of jaden-rectal aixa enlargement -f/u Heme/Onc recs -Explained dressing care instructions to patient. Overlying white dressing to come off tomorrow, okay to shower tomorrow. -Surgery will sign off. Please re-consult if necessary. -D/W Dr. Sung
--- NOTE | 2017-12-26 08:23 | PN ---
DATE: 12/25/2017 LOCATION: 669, bed A. SUBJECTIVE: This is a 52-year-old female seen and examined in rounds without significant clinical changes, but reported episodes of rectal bleeding. Seen by the call center support consultant as well as oncology, hematology solutions sales consultant. This case discussed at length with Dr. Sung, as well as Dr. Loza, with recommendation of chemotherapy and radiation therapy before any surgical interference if the biopsy report positive for colon CA. Most recent lab results showed hepatitis profile to be negative and the patient still has normal CBC, BUN 2, creatinine 0.6, calcium 8.3. CEA is 4790. Alpha fetoprotein 2.2. PHYSICAL EXAMINATION GENERAL: A 52-year-old female, awake, alert and oriented. VITAL SIGNS: Afebrile with pulse of 86, respiratory rate 20 to 22, blood pressure of 110/72. HEENT: Showed pale, dry oral mucous membranes. Nonicteric sclerae. LUNGS: Clear. Breathing sounds are present bilaterally. ABDOMEN: Soft. Bowel sounds are present with slight generalized tenderness. No mass or organomegaly. HEART: Positive S1 and S2. RECTAL EXAMINATION: Guaiac positive stool. EXTREMITIES: Without clubbing, cyanosis, or edema. NEUROLOGIC: No reported new neurological deficits, sensory or motor. It has to be mentioned that the patient stated that she has her sister with known history of colon CA at the same age of 5252 years old. IMPRESSION: 1. Rectal mass lesion most likely carcinoma of the colon with excessive increase of CEA and metastasis to the liver. 2. Rectal bleeding secondary to above. 3. Known history of migraine headache with depression. SUGGESTIONS: 1. Agree with your plan. 2. Port-A-Cath insertion. 3. The patient radiation treatment to surgical interference most likely. 4. Followup colonoscopy after 1 year is recommended. Paulino Rodriguez MD
--- NOTE | 2017-12-26 10:03 | CP.PCM.PN ---
Subjective - Date & Time of Evaluation Date of Evaluation: 12/26/17 Time of Evaluation: 09:20 - Subjective Subjective: PGY 2 Medicine Progress Note- Dr. Jones's service Patient seen and examined in no apparent acute distress. Patient states that she has not been experiencing as much hematochezia. Patient has had an appetite. She denies nausea, vomiting, diarrhea at this time. Objective - Vital Signs/Intake and Output Vital Signs (last 24 hours): Temp Pulse Resp BP Pulse Ox 98.3 F 98 H 20 116/76 98 12/26/17 07:15 12/26/17 07:58 12/26/17 07:15 12/26/17 07:15 12/26/17 07:15 - Medications Medications: Current Medications Pantoprazole Sodium (Protonix Inj) 40 mg IVP DAILY MARGARITA Last Admin: 12/26/17 09:14 Dose: 40 mg - Labs Labs: 12/26/17 07:04 12/26/17 07:04 PT 11.2 SECONDS (9.7-12.2) 12/23/17 11:41 INR 1.0 12/23/17 11:41 APTT 37 SECONDS (21-34) H 12/23/17 11:41 - Constitutional Appears: Non-toxic, No Acute Distress - Head Exam Head Exam: ATRAUMATIC, NORMAL INSPECTION - Eye Exam Eye Exam: EOMI, Normal appearance, PERRL Pupil Exam: NORMAL ACCOMODATION - ENT Exam ENT Exam: Mucous Membranes Moist - Neck Exam Neck Exam: Full ROM - Respiratory Exam Respiratory Exam: NORMAL BREATHING PATTERN. absent: Wheezes - Cardiovascular Exam Cardiovascular Exam: +S1, +S2. absent: Murmur - GI/Abdominal Exam GI & Abdominal Exam: Soft, Normal Bowel Sounds. absent: Guarding, Rigid - Extremities Exam Extremities Exam: Full ROM, Normal Capillary Refill. absent: Pedal Edema - Back Exam Back Exam: Full ROM - Neurological Exam Neurological Exam: Alert, Awake, CN II-XII Intact, Oriented x3 - Psychiatric Exam Psychiatric exam: Normal Affect, Normal Mood - Skin Skin Exam: Intact, Normal Color, Warm Assessment and Plan - Assessment and Plan (Free Text) Assessment: Rectal adenocarcinoma Assessment & Plan: Prelim path shows adenocarcinoma Elevated CEA CT scan shows evidence of mets to the liver as well as evidence of jaden-rectal aixa enlargement Hepatitis negative Dr. Loza consulted, help appreciated. Patient to have outpatient chemo Dr. Sung consulted, help appreciated - s/p Right IJ portacath placement w/ fluoroscopy . Surgery will defer further intervention after Heme/onc treatment. Dr. Garza consulted, help appreciated Status: Acute Prophylactic Measures Assessment & Plan: Protonix 40mg IVP daily No chemical anticoagulation secondary to GI Bleed SCDS Status: Acute Discharge Instructions Patient is medically stable for discharge home. Patient to follow up with primary medical doctor Robert within one week. Patient to follow up with Dr. Loza, Electric Meter Repairer Helper-Oncologist within one week of discharge to begin outpatient therapy management. Patient to follow up with Surgeon, Dr. Sung after following up with Dr. Loza for follow up care. This should be within two weeks. Patient should stop taking flagyl antibiotics. Patient may resume other home medications. If symptoms return, go to the emergency room. Instructions explained to patient who is aware. Discussed with attending. All management per Dr. Jones.
[2017-12-26 12:10] VITALS: PULSE 106
--- NOTE | 2017-12-26 14:38 | RAD ---
PROCEDURE: Intraoperative Fluoroscopy. HISTORY: COLON CA. FINDINGS: Fluoroscopic assistance was provided. Radiation dose = 2.2 mGy. 44.7 seconds of fluoroscopy time Please refer to the operative report from REMBERTO Waterman.
--- NOTE | 2017-12-29 06:39 | PN ---
DATE: 12/26/2017 LOCATION: 669, bed A. SUBJECTIVE: This is a 52-year-old female with known history of rectal mass lesion and bleeding, most likely CA of the colon with metastatic lesion to the liver. Seen and examined earlier in rounds today for Port-A-Cath insertion with intermittent period of rectal bleeding on and off, tolerating oral intake well. No reported nausea, vomiting, hematemesis, but mild generalized weakness and malaise. The entire chart is reviewed including but not limited to the most recent lab and radiology study results, current and the previous medication list, current and the previous medical events. Today's lab showed normal CBC with low BUN of 5 but normal creatinine, calcium 8.2. PHYSICAL EXAMINATION: GENERAL: A 52-year-old female, awake, alert, oriented. VITAL SIGNS: Afebrile with pulse of 96, respiratory rate 20 to 22, blood pressure 120/74. HEENT: Showed pale, dry oral mucous membranes. Nonicteric sclerae. LUNGS: Clear. Breathing sounds are present bilaterally. HEART: Positive S1 and S2. ABDOMEN: Soft. Bowel sounds are present with slight distention. Nontender. EXTREMITIES: Without significant clubbing, cyanosis, or edema. NEUROLOGIC: No reported new neurological deficits, sensory or motor. Peripheral pulses are present bilaterally. IMPRESSION: 1. Rectal mass lesion, most likely secondary to rectal carcinoma with metastatic lesion to the liver as reported by the CAT scan. 2. Peptic ulcer disease. 3. Rectal bleeding secondary to above. 4. Known history of depression with migraine headaches. SUGGESTIONS: 1. Continue current management. 2. Adjust oral intake. 3. Follow up with oncology/hematology recommendation. 4. Further evaluation to follow and no need for further aggressive GI workup in the meantime. Case is to be discussed with Dr. Loza. Paulino Rodriguez MD
== END 2017-12-26 15:38 | disposition home or self-care (01) | DRG 172 ==
LOC: C.ER 10:38 → C.9E 11:04 → C.6T 11:28
PROVIDERS: ADMIT Internal Medicine Pulmonary Disease; ATTEND Internal Medicine Pulmonary Disease
PROC: B548ZZA Ultrasonography of Superior Vena Cava, Guidance (ICD-10-PCS; 2017-12-25)
PROC: 02HV33Z Insertion of Infusion Device into Superior Vena Cava, Percutaneous Approach (ICD-10-PCS; principal; 2017-12-25 10:30)
DX: C20 Malignant neoplasm of rectum (principal); K92.2 Gastrointestinal hemorrhage, unspecified; C78.7 Secondary malignant neoplasm of liver and intrahepatic bile duct; K27.9 Peptic ulcer, site unspecified, unspecified as acute or chronic, without hemorrhage or perforation; K64.9 Unspecified hemorrhoids